=== PATIENT | female | born 1990 | race Caucasian/White ===

== ENCOUNTER 2019-12-08 22:25 | Observation (INO) | payer MEDICAID | END 2019-12-09 00:17 | disposition home or self-care (01) | LOC: SPU 22:25 | PROVIDERS: ADMIT Specialist; ATTEND Specialist | DX: O26.892 Other specified pregnancy related conditions, second trimester (principal); R05 Cough; R10.9 Unspecified abdominal pain; Z3A.22 22 weeks gestation of pregnancy | CPT/HCPCS: G0378 ==

== ENCOUNTER 2019-12-09 00:19 | Emergency (ER) | payer MEDICAID ==
[~2019-12-09] VITALS: Ht 167.6 cm; Wt 102.1 kg
[2019-12-09 00:25] VITALS: BP_SYST 144
--- NOTE | 2019-12-09 00:25 | NUR ---
Patient to ER bed 01 to gown for evaluation. Side rails up.
--- NOTE | 2019-12-09 00:28 | NUR ---
ER Dr. Bond at bedside examining patient.
--- NOTE | 2019-12-09 00:28 | NUR ---
Pt presents to ER with c/o cough. Pt A&Ox4. Pt states she is 22 weeks . Pt states she went to OB and heart rate is 140. Pt states she has had cough for 3 days. Pt states she has intermittent productive cough. Pt states chest pain with cough. Pt states intermittent body aches. Pt states sore throat. Pt states pain is 6/10. Pt states she got flu vaccine this season. Pt denies fever, chills, nausea, vomiting and diarrhea. Rhonci noted bilaterally. No use of accessory muscles. Will continue to monitor.
--- NOTE | 2019-12-09 00:52 | NUR ---
Strep and flu swabs collected. Specimens sent to lab.
[2019-12-09 01:13] LABS: INFLUENZA A&B ANTIGEN SCREEN NEGATIVE FOR A & B (NEGATIVE)
[2019-12-09] MEDS ORDERED: AZITHROMYCIN 250 MG TABLET PO ONE (01:15)
[2019-12-09 01:22] LABS: STREPTOCOCCUS A SCREEN (RAPID) NEGATIVE (NEGATIVE)
--- NOTE | 2019-12-09 01:40 | NUR ---
Note undone in EDM - 12/09/19 at 0250 by PURA Patient given written and verbal discharge instructions and verbalizes understanding. ER MD Bond discussed with patient the results and treatment provided. Patient in stable condition. ID arm band removed. Rx of Zithromax given. Patient educated on pain management and to follow up with PMD. Pain Scale 0/10. Opportunity for questions provided and answered. Medication side effect fact sheet provided.
--- NOTE | 2019-12-09 01:40 | NUR ---
Pt medicated per MD orders.
[2019-12-09 01:58] VITALS: BP_SYST 140
--- NOTE | 2019-12-09 01:58 | NUR ---
Patient given written and verbal discharge instructions and verbalizes understanding. ER MD Bond discussed with patient the results and treatment provided. Patient in stable condition. ID arm band removed. Rx of Zithromax given. Patient educated on pain management and to follow up with PMD. Pain Scale 0/10. Opportunity for questions provided and answered. Medication side effect fact sheet provided.
== END 2019-12-09 01:58 | disposition home or self-care (01) ==
LOC: SED 00:19
DX: J40 Bronchitis, not specified as acute or chronic (principal)
CPT/HCPCS: 86403; 86710; 87081; 99283; Q0144; 36415

== ENCOUNTER 2021-12-09 08:43 | Emergency (ER) | payer MEDICAID ==
[~2021-12-09] VITALS: Ht 167.6 cm; Wt 99.8 kg
[2021-12-09 09:04] VITALS: BP_SYST 145
--- NOTE | 2021-12-09 09:24 | NUR ---
DR THOMAS IN ROOM FOR EXAM
--- NOTE | 2021-12-09 09:25 | NUR ---
PT COMES TO ER WITH C/O LEDT UPPER QUAD PAIN RADIATING TO LEFT LOWER QUAD PAIN X 4 DAYS ASSOCIATED WITH MILD NAUSEA. REPORTS BEING LATE ON HER PERIOD, LMP Oct. URINE COLLECTED, PT IS FOR PREGANCY. G-5,P-3. PT DENIES ANY VAGINAL BLEEDING. DENIES DYSURIA.
[2021-12-09 09:41] LABS: BASOPHILS % (AUTO) 0.6 % (0.0-2.0); EOSINOPHILS # (AUTO) 0.1 K/uL (0.0-0.4); HEMATOCRIT 37.7 % (36-48); HEMOGLOBIN 12.6 g/dL (12.0-16.0); LYMPHOCYTES # (AUTO) 1.7 K/uL (1.0-5.5); LYMPHOCYTES % (AUTO) 23.8 % (20.5-51.5); MEAN CORPUSCULAR HEMOGLOBIN 29 pg (27-31); MEAN CORPUSCULAR HGB CONC 33 % (32-36); MEAN CORPUSCULAR VOLUME 87 fL (79.0-98.0); MONOCYTES # (AUTO) 0.3 K/uL (0.0-1.0); MONOCYTES % (AUTO) 4.3 % (1.7-9.3); NEUTROPHILS # (AUTO) 5.1 K/uL (1.8-7.7); NEUTROPHILS % (AUTO) 70.3 % (40.0-70.0); PLATELET COUNT (AUTO) 241 K/uL (130-430); RED BLOOD CELL COUNT(AUTO) 4.35 MIL/uL (4.2-6.2); RED CELL DISTRIBUTION WIDTH 14.1 % (9.0-15.0); WHITE BLOOD COUNT (AUTO) 7.3 K/uL (4.8-10.8)
[2021-12-09 10:28] LABS: BILIRUBIN,URINE NEGATIVE (NEGATIVE); BLOOD, URINE NEGATIVE (NEGATIVE); CLARITY/URINE CLEAR (CLEAR); COLOR,URINE YELLOW (YELLOW); GLUCOSE,URINE NEGATIVE (NEGATIVE); KETONES,URINE NEGATIVE (NEGATIVE); LEUKOCYTE ESTERASE ,URINE NEGATIVE (NEGATIVE); NITRITE, URINE NEGATIVE (NEGATIVE); PROTEIN URINE NEGATIVE (NEGATIVE); UROBILINOGEN,URINE 0.2 (0.2-1.0)
[2021-12-09] MEDS ORDERED: PYRI25TA4 PO (10:48)
[2021-12-09 11:11] VITALS: BP_SYST 129
--- NOTE | 2021-12-09 11:12 | NUR ---
Patient given written and verbal discharge instructions and verbalizes understanding. ER MD discussed with patient the results and treatment provided. Patient in stable condition. ID arm band removed. Rx of ANTIEMETIC-PYROXIDINE given. Patient educated on pain management and to follow up with PMD. Pain Scale . Opportunity for questions provided and answered. Medication side effect fact sheet provided.
== END 2021-12-09 10:55 | disposition home or self-care (01) ==
LOC: SED 08:43
DX: O26.891 Other specified pregnancy related conditions, first trimester (principal); R10.9 Unspecified abdominal pain; Z3A.01 Less than 8 weeks gestation of pregnancy
CPT/HCPCS: 36415; 81003; 81025; 84702; 85025; 99283